=== PATIENT | female | born 1990 | race African-American/Black ===

== ENCOUNTER 2018-12-19 21:45 | Emergency (ER) | payer SELFPAY ==
[~2018-12-19] VITALS: Ht 180.3 cm; Wt 59.0 kg
[2018-12-19] MEDS ORDERED: CLINDAMYCIN HC150 MG PO (22:44)
[2018-12-19] MEDS ORDERED: IBUPROFEN400 MG PO (22:44)
[2018-12-19] MEDS ORDERED: CLINDAMYCIN PHOS 600 MG/ 4 ML VIAL IM ONE (22:45)
[2018-12-19] MEDS ORDERED: TYLENOL WITH C1 EACH PO (22:46)
[2018-12-19] MEDS ORDERED: ONDANSETRON ODT8 MG PO (22:50)
== END 2018-12-19 23:30 | disposition home or self-care (01) ==
LOC: FSED 21:45
DX: K02.9 Dental caries, unspecified (principal); K04.7 Periapical abscess without sinus; L24.9 Irritant contact dermatitis, unspecified cause; F17.210 Nicotine dependence, cigarettes, uncomplicated
CPT/HCPCS: 99283